=== PATIENT | female | born 1965 | race Caucasian/White ===

== ENCOUNTER 2022-11-15 10:09 | Outpatient (AMB) | payer OTHER, SELFPAY ==
--- NOTE | 2022-11-15 10:12 | A.OFFPC_ITS ---
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 Allergies Sulfa (Sulfonamide Antibiotics) Allergy (Severe, Verified 11/15/22 11:09) Diarrhea Medication List - Last Reconciled 11/15/22 by Meño De Leon MD ibuprofen (Advil Liqui-Gel) 400 mg PO Q8H PRN Tobacco use date assessed: 11/15/22 Dental Screening Dental Screen Date: 11/15/22 Did you have a dental visit in the last 12 months?: No Did you have a dental problem in the last 6 months where you did not have access to dental care?: No Was dental information given to patient?: Patient has 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 HPI Details Patient comes in today for her annual physical examination and to establish care - is a new patient to the practice States that due to a change in her health insurance coverage, she can no longer continue to see and follow up with her previous PCP Relates that she's had recurrent problems with her lower back (pain) since she was in her 20's and feels that her lower back pain has gradually gotten a lot worse over the past few years She is scheduled to get a lumbar spine MRI done at [facility] later today - have advised patient to make sure that the MRI department send over a copy of her results over to us so we can review them as well States that she had some labs done at [facility] a few days ago and will try to get a copy of her results sent over to us as soon as possible Relates that she consistently has had issue with a slightly high platelet count and WBC count (around 400s) for a few years now and that her numbers were still elevated on her recent labs States that she has been advised before to get these checked out further by a specialist but she has never had the chance yet to get these done as she was busy taking care of her over the past few years until he from illness months ago Feels that she is now ready to start taking care of herself and would like to get a referral to see hematology for her abnormal labs She also relates (+) Hx of gestational diabetes and has been advised a couple of times that her sugar was borderline but has never had to take any Rx yet She denies any headaches or dizziness Denies any chest pains, no SOB No nausea/vomiting, no abdominal pain No change in bowel habits noted Denies any acute urinary symptoms States that she has 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, mammogram or screening colonoscopy done in the past and does not wish to be referred for these at present States that she will call for orders/referrals when she is ready for these [facility] Medical History (Updated 11/15/22 @ 12:39 by Meño De Leon MD) Lumbar degenerative disc disease Morbid obesity with BMI of 40.0-44.9, adult Thrombocytosis Leukocytosis (leucocytosis) Gestational diabetes Surgical History (Updated 11/15/22 @ 11:14 by Meño De Leon MD) Hx of appendectomy Family History Other Diabetes FH: mental illness Hypertension Substance abuse Social History Housing: House Patient Tobacco Use Status: Former Tobacco user e-Cigarette/Vaping Use: Never Used service: No Current occupational status: employed Current occupational exposures/hazards: No Cognitive needs: No Hearing needs: No Vision needs: No Female Reproductive History Menstrual Menopause type: natural (since 2019) Questionnaire PHQ-9 Over the last 2 weeks, how often have you been bothered by any of the following problems? 1. Little interest or pleasure in doing things: not at all 2. Feeling down, depressed, or hopeless: not at all 3. Trouble falling or staying asleep, or sleeping too much: not at all 4. Feeling tired or having little energy: not at all 5. Poor appetite or overeating: not at all 6. Feeling bad about yourself - or that you are a failure or have let yourself or your family down: not at all 7. Trouble concentrating on things, such as reading the newspaper or watching television: not at all 8. Moving or speaking so slowly that other people could have noticed. Or the opposite - being so fidgety or restless that you have been moving around a lot more than usual: not at all 9. Thoughts that you would be better off or of hurting yourself in some way: not at all Total score: 0 Depression Screening Interpretation: Negative 86714 - PHQ-9 Billing: Yes Source: Developed by Drs. Jonathan Scott, Roger Valderrama and colleagues, with an educational daniel from [employer]. Thrive Questionnaire Date Thrive assessed: 11/15/22 I am a: Patient What is your living situation today?: I have a steady place to live Within the past 12 months, did the food you bought not last and you didn't have the money to get more?: Never true Within the past 12 months, did you worry whether your food would run out before you got money to buy more?: Never true Do you have trouble paying for medicines?: No Do you have trouble getting transportation to medical appointments?: No Do you have trouble paying your heating and electricity bill?: No Do you have trouble taking care of your child, family member or friend?: No Do you have trouble with day-to-day activities such as bathing, preparing meals, shopping, managing finances, etc.?: No Are you currently unemployed and looking for a job?: No Are you interested in more education?: No Please select the resources that you would like help with: None Currently or been in a relationship where the following occur: no concerns reported AUDIT C Alcohol Use Questionnaire (AUDIT-C) 1. How often do you have a drink containing alcohol?: Never 3. How often do you have six or more drinks on one occasion?: Never Total Score: 0 Score Reviewed/Action Taken: Yes AVA-7 AMB Questionnaire AVA-7 Date AVA - 7 assessed: 11/15/22 Feeling nervous, anxious, or on edge: 0 = Not at all Not being able to stop or control worryin = Not at all Worrying too much about different things: 0 = Not at all Trouble relaxin = Not at all Being so restless that it is hard to sit still: 0 = Not at all Becoming easily annoyed or irritable: 0 = Not at all Feeling afraid as if something awful might happen: 0 = Not at all Total AVA-7 score (0-4 normal; 5-9 mild; 10-14 moderate; 15-21 severe): 0 Source: Developed by Domitila Tomlin. Leon, Roger Trevino and colleagues, with an educational daniel from [employer]. Review of Systems Const Denies chills, Denies fatigue, Denies fever(s), Denies headache(s) and Denies malaise Eyes Denies blurry vision, Denies change in vision, Denies irritation and Denies itchy eyes ENT Denies dysphagia, Denies dizziness, Denies otalgia, Denies headache(s), Denies nasal congestion, Denies neck pain, Denies odynophagia, Denies sinus pain and Denies sore throat Card Denies chest pain, Denies rapid heart rate, Denies irregular heart rhythm, Denies palpitations and Denies dyspnea Resp Denies chest congestion, Denies cough, Denies dyspnea and Denies wheezing GI Denies abdominal pain, Denies bloating, Denies constipation, Denies dysphagia, Denies heartburn, Denies diarrhea, Denies nausea, Denies odynophagia and Denies vomiting Denies hematuria, Denies urinary frequency, Denies dysuria, Denies urinary incontinence and Denies urinary urgency Musc Reports back pain (over the lower back - chronic), Denies arthralgias, Denies joint swelling, Denies muscle weakness and Denies neck pain Skin/Breast Denies breast pain, Denies breast mass, Denies change in pigmentation, Reports lesions ((+) palpable cyst over the right lower back), Denies rash and Denies unusual bruising Neuro Denies dizziness, Denies headache(s) and Denies paresthesias Psych Denies anxiety and Denies depression Endo Denies fatigue and Denies palpitations Renny/Lymph Denies easy bruising and Denies lymphadenopathy Aller/Immun Denies itchy eyes and Denies wheezing Physical exam (Primary Care) Vital Signs: Last Vital Signs Pulse 88 11/15/22 10:15 BP 120/80 11/15/22 10:15 Pulse Ox 95 11/15/22 10:15 Oxygen Delivery Method Room Air 11/15/22 10:15 BMI result Body Mass Index 40.7 Tobacco/Smoking Status: Tobacco use Status Tobacco use date assessed 11/15/22 11/15/22 10:21 Patient Tobacco Use Status Former Tobacco user 11/15/22 10:21 e-Cigarette/Vaping Use Never Used 11/15/22 10:21 PHQ-9: PHQ-9 Score PHQ-9: Total score 0 11/15/22 10:21 Depression Screening Interpretation: Negative Thrive Assessment: Date of Thrive Assessment Date Thrive assessed 11/15/22 11/15/22 10:21 Currently or been in a relationship where the following occur: no concerns reported Const General: no acute distress, alert and awake Orientation/consciousness: patient oriented x3 HENMT Head: Yes normocephalic and Yes atraumatic Ears: external ears normal, TM's normal bilaterally and EAC's normal General nose exam: No nasal discharge present Face and sinus: Yes normal facial exam and Yes sinuses nontender Teeth and gingiva: dentition normal Throat: Yes posterior oropharynx normal and Yes tonsils normal (no TP congestion) Eyes Eyelids: Yes eyelids normal Conjunctivae: conjunctivae normal Pupils: Equal, round and reactive pupils present EOM: EOMs intact bilaterally Neck Neck: Yes no lymphadenopathy and Yes supple Thyroid: Thyroid normal Resp Auscultation: clear to auscultation bilaterally, no rales and no wheezes Cardio Rate: regular rate Rhythm: regular rhythm Heart sounds: no murmurs GI Palpation (GI): Soft to palpation, nontender and No hepatosplenomegaly present Auscultation: normal bowel sounds General: Yes no CVA tenderness Back/Spine/Pelvis Back: no CVA tenderness Thoracic/Lumbar Spine: lumbar spinal tenderness Skin Lesions: no lesions Rashes: no rashes Neuro General: patient oriented x3, moves all extremities, no focal motor deficits and CN's II-XI intact bilaterally Cranial nerves: Yes Equal, round and reactive pupils present Cognition (Neuro): normal cognition Gait exam (Neuro): Normal gait present Extrem General: Yes no clubbing, cyanosis or edema Assessment and Plan Assessment & Plan (1) Annual physical exam: Code(s): Z00.00 - Encounter for general adult medical examination without abnormal findings Plan: Will try to obtain a copy of her most recent lab results that were done at [facility] just a few days ago for review States that she has never had annual mammogram, 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 and screening colonoscopy done in the past and does not wish to pursue these at the moment - states that she will call for orders/referrals when she feels she is ready to get these taken care of (2) Leukocytosis (leucocytosis): Code(s): D72.829 - Elevated white blood cell count, unspecified Qualifiers: Leukocytosis type: unspecified Qualified Code(s): D72.829 - Elevated white blood cell count, unspecified Plan: Unknown etiology Per request, will refer her to hematology for further evaluation and management (3) Thrombocytosis: Code(s): D75.839 - Thrombocytosis, unspecified Plan: Per request, will refer her to hematology for further evaluation and management (4) Impaired fasting glucose: Code(s): R73.01 - Impaired fasting glucose Plan: Will review her recent lab results once we receive them from [facility] - patient states that she will try to have them sent/faxed over PÉREZ Discussed low calorie/low carb diet; exercise as tolerated although she states that her lower back issues limit her activity tolerance quite a bit (5) Lumbar degenerative disc disease: Code(s): M51.36 - Other intervertebral disc degeneration, lumbar region Plan: Reinforced activity and weight-lifting restrictions to help minimize her lower back from flaring up States that she is scheduled to have a lumbar spine MRI done at the hospital later today for further evaluation of her lower back pain (6) Morbid obesity with BMI of 40.0-44.9, adult: Code(s): E66.01 - Morbid (severe) obesity due to excess calories; Z68.41 - Body mass index [BMI] 40.0-44.9, adult Plan: Reinforced diet/exercise as tolerated/lose weight Plan Follow up in 6 months Orders: Referrals Hematology & Oncology Referral D72.829 - Elevated white blood cell count, unspecified, D75.839 - Thrombocytosis, unspecified Review Patient declined Mammogram: 11/15/22 Declined Pap Smear: 11/15/22 Patient declined Colonoscopy: 11/15/22 Patient declined Colon Cancer Screen Lab: 11/15/22 Patient declined Pneumococcal Vaccine: 11/15/22 Declined TDap/Td: 11/15/22 Coding Level of Care Code New Pt Prev Care 40-64y(10057) Diagnoses Annual physical exam Z00.00 Leukocytosis, unspecified type D72.829 Leukocytosis type: unspecified Thrombocytosis D75.839 Impaired fasting glucose R73.01 Lumbar degenerative disc disease M51.36 Morbid obesity with BMI of 40.0-44.9, adult E66.01; Z68.41
[2022-11-15 10:15] VITALS: BP 120/80; PULSE 88; O2SAT 95; BMI 40.7
== END 2022-11-15 11:24 | disposition home or self-care (01) ==
PROVIDERS: PCP Internal Medicine; Visit Provider Internal Medicine
DX: Z00.00 Encounter for general adult medical examination without abnormal findings (principal); D72.829 Elevated white blood cell count, unspecified; E66.01 Morbid (severe) obesity due to excess calories; Z68.41 Body mass index [BMI] 40.0-44.9, adult; D75.839 Thrombocytosis, unspecified; R73.01 Impaired fasting glucose; M51.36 Other intervertebral disc degeneration, lumbar region
CPT/HCPCS: 99386

== ENCOUNTER → 2022-11-26 07:53 | Outpatient (BNV) | payer OTHER, SELFPAY | PROVIDERS: PCP Internal Medicine; Visit Provider Internal Medicine Medical Oncology | DX: D72.829 Elevated white blood cell count, unspecified (principal) | CPT/HCPCS: 99204 ==

== ENCOUNTER 2023-07-14 09:54 | Outpatient (AMB) | payer OTHER, SELFPAY ==
--- NOTE | 2023-07-14 09:58 | A.SPINEOV_ITS ---
Intake Visit Reasons: radiculopathy, lumbar region Intake Note: Ms. Martinez is here today c/o Low back pain that radiates down to both legs. 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 She has a 57-year-old female presents today for evaluation of right-sided low back pain which started about a year ago. She tells me she has had pain in her low back on and off for 20 years but last year after doing some work on an exercise bike, she stopped and maybe a month later started experiencing this pain on the right side of her low back. It occasionally will radiate down her leg. To this point, she has not done any dedicated conservative treatment. She did buy a physical therapy program apparently, but has not really been participating in it. She was prescribed physical therapy but went for 1 session and was not comfortable with the environment she was in. She has not done any injections. 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 She did see a surgeon in [place] about this issue was told that it is nonsurgical. She was seen in your office, felt that it could be sacroiliac and offered an injection but did not want to pursue that. She is here today to see us for an evaluation with a lumbar MRI showing some mild degenerative changes. PMH: She is reasonably healthy, history of hypertension, anxiety she has an elevated white blood cell count and platelet count, appendectomy Social hx: She does not smoke. Medications: She takes no medications Allergies: Sulfa Physical exam: Morbidly obese female no acute distress, she has full strength and normal reflexes of the lower extremities, negative HARRY testing. Positive finger Nick test. Imaging review: She has a lumbar MRI done at [facility] which basically looks like normal MRI with normal disc height and normal alignment. There is some mild facet arthropathy on the left at L4-5. No nerve compression seen. Impression: 57-year-old female presents to the office for evaluation of back pain on the right side which started about a year ago, worse with standing, seems to be okay if she is sitting down but she will feel it at night when she is lying. She will get a pain down her right leg occasionally but the main symptom is the back pain. Her MRI otherwise looks basically normal, I see no pathology. I agree with your assessment that this could be sacroiliac and that an injection would be worthwhile but she seems to be against that. She is very insistent that there was some kind of problem with the fatty tumor diagnosis that she saw online. I did not see any such thing on her imaging. I have never heard of this, and we do not do any procedure related to this finding. She seemed disappointed with that, but I encouraged her to seek out the doctors who due to that procedure if she is convinced that is going to fix her issues. I did try to explain her that back pain is a very complicated problem and that often the sources never found but the most reliable and standard therapies are the things that she has not tried yet. This would be weight loss, dedicated long-term physical therapy, anti-inflammatories, Tylenol, chiropractic, acupuncture, yoga etc.. Thank you for allowing us to care for your patient. The total time spent with this visit with this patient was 45 minutes reviewing history, physical exam, lumbar imaging review, and implementation of treatment plan or further diagnostic testing Ellis Nur MD,PhD [facility] Coding Level of Care Code New Pt Level 4 (45650) Diagnoses Back pain M54.9
== END 2023-07-14 11:21 | disposition home or self-care (01) ==
PROVIDERS: PCP Internal Medicine; Referring Provider Physician Assistant; Visit Provider Physician Assistant
DX: M54.9 Dorsalgia, unspecified (principal)
CPT/HCPCS: 99204

== ENCOUNTER → 2023-07-14 09:54 | Outpatient (BNVA) | payer OTHER, SELFPAY | PROVIDERS: PCP Internal Medicine; Visit Provider Physician Assistant | DX: M54.16 Radiculopathy, lumbar region (principal) | CPT/HCPCS: 99202 ==

== ENCOUNTER 2023-09-16 10:29 | Outpatient (REF) | payer OTHER, SELFPAY ==
--- NOTE | ~2023-09-16 | US_ITS ---
EXAMINATION: US ABDOMEN LIMITED CLINICAL INFORMATION: Intra-abdominal and pelvic swelling, mass or lump, unspecified. COMPARISON: None available. TECHNIQUE: Real-time imaging of the right lower flank. FINDINGS: No sonographic correlate for reported symptoms of palpable lump in the right flank. No lymphadenopathy, fluid collection or soft tissue mass. US/US abdomen limited IMPRESSION: No sonographic correlate for reported symptoms of palpable lump in the right flank.
== END 2023-09-16 10:30 | disposition home or self-care (01) ==
LOC: HO.US 10:29
PROVIDERS: PCP Internal Medicine; Visit Provider Internal Medicine
DX: R19.00 Intra-abdominal and pelvic swelling, mass and lump, unspecified site (principal)
CPT/HCPCS: 76705

== ENCOUNTER 2023-10-20 11:13 | Outpatient (AMB) | payer OTHER, SELFPAY ==
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
[2023-10-20 11:22] VITALS: BP 178/87; PULSE 91; O2SAT 97; BMI 42.7
== END 2023-10-20 12:13 | disposition home or self-care (01) ==
PROVIDERS: PCP Internal Medicine; Referring Provider Internal Medicine; Visit Provider Nurse Practitioner Family
DX: M51.36 Other intervertebral disc degeneration, lumbar region (principal); M47.817 Spondylosis without myelopathy or radiculopathy, lumbosacral region; M53.3 Sacrococcygeal disorders, not elsewhere classified; E66.01 Morbid (severe) obesity due to excess calories; Z68.41 Body mass index [BMI] 40.0-44.9, adult; M54.16 Radiculopathy, lumbar region; D17.1 Benign lipomatous neoplasm of skin and subcutaneous tissue of trunk
CPT/HCPCS: 99204

== ENCOUNTER → 2023-10-20 11:13 | Outpatient (BNVA) | payer OTHER, SELFPAY | PROVIDERS: PCP Internal Medicine; Referring Provider Internal Medicine; Visit Provider Nurse Practitioner Family | DX: M51.36 Other intervertebral disc degeneration, lumbar region (principal); M47.817 Spondylosis without myelopathy or radiculopathy, lumbosacral region; M53.3 Sacrococcygeal disorders, not elsewhere classified; M54.16 Radiculopathy, lumbar region; D17.1 Benign lipomatous neoplasm of skin and subcutaneous tissue of trunk; E66.01 Morbid (severe) obesity due to excess calories; Z68.41 Body mass index [BMI] 40.0-44.9, adult | CPT/HCPCS: 99202 ==

== ENCOUNTER 2023-10-21 08:34 | Outpatient (REF) | payer OTHER, SELFPAY | END 2023-10-21 08:35 | disposition home or self-care (01) | LOC: HO.XRAY 08:34 | PROVIDERS: PCP Internal Medicine; Visit Provider Nurse Practitioner Family | DX: Z13.89 Encounter for screening for other disorder (principal) ==

== ENCOUNTER 2023-10-23 07:22 | Outpatient (REF) | payer OTHER, SELFPAY ==
--- NOTE | ~2023-10-23 | XR_ITS ---
EXAMINATION: XR LUMBOSACRAL SPINE BENDING FILMS ONLY CLINICAL INFORMATION: Other intervertebral disc degeneration, lumbar region COMPARISON: None available. TECHNIQUE: Lateral flexion and extension views of the lumbar spine were obtained. FINDINGS: Grade 1 anterolisthesis of L4 on L5 measures 6 mm in flexion and 8 mm in extension. Otherwise alignment is anatomic. No compression fracture. No significant degenerative disc disease. Probable mild facet arthrosis at L4-5 and L5-S1. XR/XR lumbar spine bending only IMPRESSION: Grade 1 anterolisthesis L4 on L5 measuring 6 mm in flexion and 8 mm in extension. Electronically signed by: Pawan Alfonso MD 11/18/2023 01:41 PM EDT
== END 2023-10-23 07:23 | disposition home or self-care (01) ==
LOC: HO.XRAY 07:22
PROVIDERS: PCP Internal Medicine; Visit Provider Nurse Practitioner Family
DX: M51.36 Other intervertebral disc degeneration, lumbar region (principal); M47.817 Spondylosis without myelopathy or radiculopathy, lumbosacral region; M53.3 Sacrococcygeal disorders, not elsewhere classified
CPT/HCPCS: 72120

== ENCOUNTER 2023-10-30 08:47 | Outpatient (AMB) | payer OTHER, SELFPAY ==
[2023-10-30 08:55] VITALS: BMI 42.7
--- NOTE | 2023-10-30 08:55 | MHC.OFFVIS ---
Vital Signs 10/30/23 08:55 Height 5 ft 1 in Weight 226 lb 3.99 oz BMI 42.7 Intake Visit Reasons: lipoma midparaspinal Intake Note: This patient presents for a lipoma of the midparaspinal region. Pt c/o; reports pain, reports feels a lump on her back. Process Environmental Technician Required: No Accompanied by: Other Relationship Allergies Sulfa (Sulfonamide Antibiotics) Allergy (Severe, Verified 10/30/23 08:56) Diarrhea Medication List - Last Reconciled 10/30/23 by Red Bailey MD No Known Home Meds HPI Comments Details: 57-year-old female patient presenting with complaints of low back pain and a palpable mass 1st noted approximately 1 year ago. The lump has increased in size and is causing increased discomfort. She reports mainly localized pain when the lump is palpated but also has some pain extending down her right leg. She has been evaluated by the pain clinic and recommendation made for excision of this palpable lump. She denies a previous history of lipomas. She denies any bleeding or discharge from the site. [facility] Medical History Lumbar degenerative disc disease Morbid obesity with BMI of 40.0-44.9, adult Thrombocytosis Leukocytosis (leucocytosis) Gestational diabetes Surgical History Hx of appendectomy Family History Father Prostate CA Maternal Aunt Lung cancer Mother Diabetes Hypertension Other FH: mental illness Substance abuse Social History Housing: House Patient Tobacco Use Status: Former Tobacco user e-Cigarette/Vaping Use: Never Used service: No Current occupational status: employed Current occupational exposures/hazards: No Cognitive needs: No Hearing needs: No Vision needs: No Review of Systems Const All systems reviewed & are unremarkable except as noted in HPI and below Physical Exam Vital Signs: BMI result Body Mass Index 42.7 Const General: cooperative and no acute distress Nutritional Appearance: well nourished Orientation/consciousness: patient oriented x3 Limitations: no limitations HEENT Head: Yes normocephalic and Yes atraumatic Ears: hearing grossly normal bilaterally Resp Effort & Inspection: normal respiratory effort, no audible wheezes, no cough and no respiratory distress Cardio Jugular venous distension: no JVD GI Inspection: Yes normal to inspection Back/Spine/Pelvis Back/spine/pelvis image: 1. 5 cm mobile soft tissue mass within the subcutaneous tissue, tender to palpation suggestive of a lipoma. No overlying skin changes are appreciated. Skin Other: Warm, dry, no rash Neuro General: patient oriented x3 Extrem General: Yes no clubbing, cyanosis or edema Assessment & Plan Assessment & Plan (1) Lipoma of lower back: Code(s): D17.1 - Benign lipomatous neoplasm of skin and subcutaneous tissue of trunk Category: Medical Plan 57-year-old female patient presenting with a soft tissue mass in the lower right back which on examination does appear consistent with a lipoma. We discussed the options of excision under anesthesia verses under local and she wishes to proceed with local anesthesia. This will be scheduled as a minor surgery at her earliest convenience. After discussion of the procedure, risks, and alternatives, she consents to excision of the right lower back lipoma. Coding Level of Care Code New Pt Level 4 (96523) Diagnoses Lipoma of lower back D17.1
== END 2023-10-30 09:10 | disposition home or self-care (01) ==
PROVIDERS: PCP Internal Medicine; Visit Provider Surgery
DX: D17.1 Benign lipomatous neoplasm of skin and subcutaneous tissue of trunk (principal)
CPT/HCPCS: 99204

== ENCOUNTER → 2023-10-30 08:47 | Outpatient (BNVA) | payer OTHER, SELFPAY | PROVIDERS: PCP Internal Medicine; Visit Provider Surgery | DX: D17.1 Benign lipomatous neoplasm of skin and subcutaneous tissue of trunk (principal) | CPT/HCPCS: 99202 ==

== ENCOUNTER 2023-11-18 09:38 | Outpatient (AMB) | payer OTHER, SELFPAY ==
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
[2023-11-18 09:57] VITALS: BP 180/102; PULSE 91; O2SAT 99; BMI 42.5
== END 2023-11-18 10:33 | disposition home or self-care (01) ==
PROVIDERS: PCP Internal Medicine; Visit Provider Nurse Practitioner Family
DX: M51.36 Other intervertebral disc degeneration, lumbar region (principal); M47.817 Spondylosis without myelopathy or radiculopathy, lumbosacral region; M53.3 Sacrococcygeal disorders, not elsewhere classified; E66.01 Morbid (severe) obesity due to excess calories; Z68.41 Body mass index [BMI] 40.0-44.9, adult; M54.16 Radiculopathy, lumbar region; D17.1 Benign lipomatous neoplasm of skin and subcutaneous tissue of trunk
CPT/HCPCS: 99214; G2211

== ENCOUNTER → 2023-11-18 09:38 | Outpatient (BNVA) | payer OTHER, SELFPAY | PROVIDERS: PCP Internal Medicine; Visit Provider Nurse Practitioner Family | DX: M51.36 Other intervertebral disc degeneration, lumbar region (principal); M47.817 Spondylosis without myelopathy or radiculopathy, lumbosacral region; M54.16 Radiculopathy, lumbar region; G89.29 Other chronic pain; M53.3 Sacrococcygeal disorders, not elsewhere classified; D17.1 Benign lipomatous neoplasm of skin and subcutaneous tissue of trunk; E66.01 Morbid (severe) obesity due to excess calories; Z68.41 Body mass index [BMI] 40.0-44.9, adult | CPT/HCPCS: 99212 ==

== ENCOUNTER 2023-12-16 12:01 | Outpatient (REF) | payer OTHER, SELFPAY ==
[2023-12-16 12:49] VITALS: BP 217/97; PULSE 89; RESP 22; O2SAT 96; BMI 33.4
== END 2023-12-16 12:02 | disposition home or self-care (01) ==
LOC: HO.MS 12:01
PROVIDERS: PCP Internal Medicine; Visit Provider Surgery
DX: Z53.09 Procedure and treatment not carried out because of other contraindication (principal)
CPT/HCPCS: J2004

== ENCOUNTER → 2024-04-16 08:40 | Outpatient (AMB) | payer OTHER, SELFPAY ==
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
== END | disposition home or self-care (01) ==
PROVIDERS: PCP Internal Medicine; Visit Provider Nurse Practitioner Family
CPT/HCPCS: 99214; G2211

== ENCOUNTER → 2024-04-16 08:40 | Outpatient (BNVA) | payer OTHER, SELFPAY | PROVIDERS: PCP Internal Medicine; Visit Provider Nurse Practitioner Family | DX: M47.817 Spondylosis without myelopathy or radiculopathy, lumbosacral region (principal); M53.3 Sacrococcygeal disorders, not elsewhere classified; M51.369 Other intervertebral disc degeneration, lumbar region without mention of lumbar back pain or lower extremity pain; M54.16 Radiculopathy, lumbar region; I10 Essential (primary) hypertension; D17.1 Benign lipomatous neoplasm of skin and subcutaneous tissue of trunk | CPT/HCPCS: 99212 ==

== ENCOUNTER 2024-06-15 09:08 | Outpatient (AMB) | payer OTHER, SELFPAY ==
--- NOTE | 2024-06-15 09:13 | A.OFFVIS_ITS ---
Vital Signs 3 06/15/24 09:23 Height 5 ft 1 in Weight 228 lb BMI 43.1 BP 140/90 H Blood Pressure Location Lt brachial Position Sitting Intake Visit Reasons: Lipoma on back Intake Note: Patient is seen in office to re-discuss excision of back lipoma. 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 She was previously evaluated last year because of many family commitments was then able to schedule the procedure. She does not feel the lipoma has changed significantly but does continue to cause significant amount of pain throughout the day. She is currently wearing lidocaine patch which does seem to help to some degree but feels she is ready to have the lipoma removed. She denies any other changes since her last visit. [facility] Medical History Lumbar degenerative disc disease Morbid obesity with BMI of 40.0-44.9, adult Thrombocytosis Leukocytosis (leucocytosis) Gestational diabetes Surgical History Hx of appendectomy Family History Father Prostate CA Maternal Aunt Lung cancer Mother Diabetes Hypertension Other FH: mental illness Substance abuse Social History Housing: House Patient Tobacco Use Status: Former Tobacco user e-Cigarette/Vaping Use: Never Used service: No Current occupational status: employed Current occupational exposures/hazards: No Cognitive needs: No Hearing needs: No Vision needs: No Review of Systems Const All systems reviewed & are unremarkable except as noted in HPI and below Physical Exam Const General: cooperative and no acute distress Nutritional Appearance: well nourished Orientation/consciousness: patient oriented x3 Limitations: no limitations HEENT Head: Yes normocephalic and Yes atraumatic Ears: hearing grossly normal bilaterally Resp Effort & Inspection: normal respiratory effort, no audible wheezes, no cough and no respiratory distress Cardio Jugular venous distension: no JVD GI Inspection: Yes normal to inspection Back/Spine/Pelvis Back/spine/pelvis image: 2 1. Approximate 5 cm lipoma in the lower right back, tender to palpation. Lipoma feels fairly deep within the subcutaneous tissue. No overlying skin changes. Skin Other: Warm, dry, no rash Neuro General: patient oriented x3 Extrem General: Yes no clubbing, cyanosis or edema Assessment & Plan Assessment & Plan (1) Lipoma of lower back: Code(s): D17.1 - Benign lipomatous neoplasm of skin and subcutaneous tissue of trunk Category: Medical Plan 58-year-old female patient with a persistently painful soft tissue mass consistent with a lipoma in the lower right back. Patient has requested excision of this lesion under local anesthesia. After review of the procedure, risks, and alternatives, she consents to the excision of lipoma. Coding Level of Care Code Est Pt Level 3 (91635) Diagnoses Lipoma of lower back D17.1
[2024-06-15 09:23] VITALS: BP 140/90; BMI 43.1
== END 2024-06-15 09:39 | disposition home or self-care (01) ==
LOC: HO.HGS 09:08
PROVIDERS: PCP Internal Medicine; Visit Provider Surgery
DX: D17.1 Benign lipomatous neoplasm of skin and subcutaneous tissue of trunk (principal)
CPT/HCPCS: 99213

== ENCOUNTER → 2024-06-15 09:08 | Outpatient (BNVA) | payer OTHER, SELFPAY | PROVIDERS: PCP Internal Medicine; Visit Provider Surgery | DX: D17.1 Benign lipomatous neoplasm of skin and subcutaneous tissue of trunk (principal) | CPT/HCPCS: 99212 ==

== ENCOUNTER 2024-06-29 12:42 | Outpatient (REF) | payer OTHER, SELFPAY ==
[2024-06-29 14:52] VITALS: BP 185/89; PULSE 95; RESP 16; TEMP 36.7; O2SAT 100; BMI 41.9
--- NOTE | 2024-06-29 15:37 | W.PM.OPN ---
Operative Note Operative Note Date of Service: 06/29/24 Narrative: Preoperative diagnosis: Lipoma right lower back Postoperative diagnosis: Same Procedure: Excision lipoma right lower back Surgeon: Red Bailey MD Prosthetic Lab Technician: None Anesthesia: Local lidocaine 1% with epinephrine Indications for procedure: 58-year-old female presenting with a painful lump in the lower back which on examination is mobile and soft consistent with a lipoma Operative findings: Lipoma measuring approximately 5 cm in diameter Specimen: Lipoma right lower back Estimated blood loss: 4 cc Complications: None Procedure details: Patient was brought to the minor surgery suite and placed in a supine position. She was then placed in a left lateral decubitus position. The site of surgery was confirmed by the patient in the right lower back. After assuring informed consent the skin was prepped with Betadine and draped in sterile fashion. Local anesthesia was infiltrated in a transverse fashion and a transverse incision made directly over the lipoma. Incision was carried out through subcutaneous tissue up to the lipoma which was felt to be fairly superficial. Allis clamp was used to grasp the lipoma. This was then easily dissected from the surrounding subcutaneous tissue using blunt dissection and a Metzenbaum scissors. The specimen was removed and sent to pathology for further examination. Pressure was held to maintain hemostasis. Deep subcutaneous tissue was then reapproximated using interrupted 3-0 Polysorb sutures. Dermis was reapproximated using interrupted 3-0 Polysorb sutures. Skin was then closed using a running subcuticular 4-0 Polysorb suture. Steri-Strips, 2 x 2 gauze and Tegaderm were then applied. The patient tolerated the procedure well. Sponge, instrument, and needle counts reported as correct. The patient was transferred to PACU in stable condition.
== END 2024-06-29 12:43 | disposition home or self-care (01) ==
LOC: HO.MS 12:42
PROVIDERS: PCP Internal Medicine; Visit Provider Surgery
PROC: (CPT 11406; principal; 2024-06-29 13:00)
DX: D17.1 Benign lipomatous neoplasm of skin and subcutaneous tissue of trunk (principal)
CPT/HCPCS: 11406; 88304; J2004

== ENCOUNTER → 2024-06-29 12:42 | Outpatient (BNV) | payer OTHER, SELFPAY | PROVIDERS: PCP Internal Medicine; Visit Provider Surgery | DX: D17.1 Benign lipomatous neoplasm of skin and subcutaneous tissue of trunk (principal) | CPT/HCPCS: 21931 ==

== ENCOUNTER 2024-10-18 17:08 | Outpatient (AMB) | payer OTHER, SELFPAY ==
--- OUTSIDE RECORDS SUMMARY | 2024-10-18 17:11 | XMS_ITS | Encounter Summary ---
Author Organization [facility] Address [address] [place] [id number] Phone Care Team Providers Care Licensed Acupuncturist Name Role Phone Unavailable Primary Care Provider Unavailabl e Encounter Details Date Type Department Care Team (Late st Contact Info) Description 12/17/2022 Telephone [facility] OBGYN Gynecology Resident [address], [place] [id number] Marla Loera [place], [place] [address] [place] [id number] [email or web address] Social History Tobacco Use Types Packs/Day Years Used Date Smoking Tobacco: Never Assessed Comments Unknown Sex and Gender Information Value Date Recorded Sex Assigned at Not on file Legal Sex Female 8:33 PM EDT Gender Identity Not on file Sexual Orientation Not on file documented as of this encounter Plan of Treatment Not on file documented as of this encounter Visit Diagnoses Not on filedocumented in this encounter Additional Source Comments The information contained in this document represents components of the legal health record. It is not the complete legal health record.[facility]
[2024-10-18 17:17] VITALS: BP 146/72; PULSE 90; RESP 18; TEMP 36.3; O2SAT 96; BMI 42.2
--- NOTE | 2024-10-18 17:17 | A.OFFPC_ITS ---
Vital Signs 10/18/24 17:17 Height 5 ft 1 in Weight 223 lb 4 oz BMI 42.2 BP 146/72 H Blood Pressure Location Lt brachial Position Sitting Respiration 18 Pulse 90 Pulse Source Pulse Oximeter Temp 97.3 F Temp Source Temporal Artery Scan Pulse Oximetry (%) 96 Oxygen Delivery Method Room Air Intake Visit Reasons: discuss leg pain Ict Programmer Required: No Accompanied by: Allergies Sulfa (Sulfonamide Antibiotics) Allergy (Severe, Verified 10/18/24 17:29) Diarrhea Medication List - Last Reconciled 10/18/24 by Meño De Leon MD No Known Home Meds Tobacco use date assessed: 10/18/24 Dental Screening Dental Screen Date: 10/18/24 Did you have a dental visit in the last 12 months?: No Did you have a dental problem in the last 6 months where you did not have access to dental care?: No Was dental information given to patient?: Patient has dentist HPI discuss leg pain HPI Details Patient comes in today for further evaluation and discussion regarding some of her long-standing and ongoing symptoms States that she has been experiencing chronic low back pain and frequent pain in both of her legs for years now She was seen for this at the pain clinic recently states that the pain Clinic as recommended a trial of epidural injections but she recalls that she has some cysts beside her lumbar spine and she is concerned the injections may aggravate these and make her lower back feel much worse She was seen for the same problem at the spine Center last year (2023) and was recommended to go for physical therapy and SI joint injections when it is appropriate; was advised that she has no surgical indications Adds that she has been taking OTC Superbeets for her high BP and she still does not wish to take any prescription Rx for her high blood pressure and is happy to see that her blood pressure today is a lot better than it was a few months ago She denies any headaches or dizziness Denies any chest pains, no increased shortness of breath No nausea/vomiting, no abdominal pain No change in bowel habits noted [facility] Medical History (Updated 10/25/24 @ 02:19 by Meño De Leon MD) Essential hypertension Lumbar degenerative disc disease Morbid obesity with BMI of 40.0-44.9, adult Thrombocytosis Leukocytosis (leucocytosis) Gestational diabetes Surgical History Hx of appendectomy Family History Father Prostate CA Maternal Aunt Lung cancer Mother Diabetes Hypertension Other FH: mental illness Substance abuse Social History Housing: House Patient Tobacco Use Status: Former Tobacco user e-Cigarette/Vaping Use: Never Used service: No Current occupational status: employed Current occupational exposures/hazards: No Cognitive needs: No Hearing needs: No Vision needs: No Questionnaire PHQ-9 Over the last 2 weeks, how often have you been bothered by any of the following problems? 1. Little interest or pleasure in doing things: nearly every day 2. Feeling down, depressed, or hopeless: several days 3. Trouble falling or staying asleep, or sleeping too much: nearly every day 4. Feeling tired or having little energy: nearly every day 5. Poor appetite or overeating: more than half the days 6. Feeling bad about yourself - or that you are a failure or have let yourself or your family down: not at all 7. Trouble concentrating on things, such as reading the newspaper or watching television: not at all 8. Moving or speaking so slowly that other people could have noticed. Or the opposite - being so fidgety or restless that you have been moving around a lot more than usual: not at all 9. Thoughts that you would be better off or of hurting yourself in some way: not at all Total score: 12 Depression Screening Interpretation: Positive Depression Screening Follow-up: Existing condition and Follow-up Visit Requested Depression Screening Done: Yes 44521 - PHQ-9 Billing: Yes Source: Developed by Drs. Jonathan Scott, Domitila Quintero, Roger Trevino and colleagues, with an educational daniel from [employer]. Thrive Questionnaire Date Thrive assessed: 10/18/24 I am a: Patient What is your living situation today?: I have a steady place to live Within the past 12 months, did the food you bought not last and you didn't have the money to get more?: Never true Within the past 12 months, did you worry whether your food would run out before you got money to buy more?: Never true Do you have trouble paying for medicines?: No Do you have trouble getting transportation to medical appointments?: No Do you have trouble paying your heating and electricity bill?: No Do you have trouble taking care of your child, family member or friend?: No Do you have trouble with day-to-day activities such as bathing, preparing meals, shopping, managing finances, etc.?: No Are you currently unemployed and looking for a job?: No Are you interested in more education?: No Please select the resources that you would like help with: None Currently or been in a relationship where the following occur: No concerns reported THRIVE Score: 0 AUDIT C Alcohol Use Questionnaire (AUDIT-C) 1. How often do you have a drink containing alcohol?: Monthly or less 2. How many drinks containing alcohol do you have on a typical day when you are drinking?: 1 or 2 3. How often do you have six or more drinks on one occasion?: Never Total Score: 1 Score Reviewed/Action Taken: Yes AVA-7 AMB Questionnaire AVA-7 Date AVA - 7 assessed: 10/18/24 Feeling nervous, anxious, or on edge: 1 = Several days Not being able to stop or control worryin = Not at all Worrying too much about different things: 1 = Several days Trouble relaxin = Not at all Being so restless that it is hard to sit still: 0 = Not at all Becoming easily annoyed or irritable: 0 = Not at all Feeling afraid as if something awful might happen: 0 = Not at all Total AVA-7 score (0-4 normal; 5-9 mild; 10-14 moderate; 15-21 severe): 2 Source: Developed by Drs. Jonathan Scott, Domitila Quintero, Roger Trevino and colleagues, with an educational daniel from [employer]. Review of Systems Const Denies chills, Denies fatigue, Denies fever(s) and Denies headache(s) Eyes Denies blurry vision ENT Denies dysphagia, Denies dizziness, Denies otalgia, Denies headache(s), Denies neck pain, Denies odynophagia and Denies sore throat Card Denies chest pain, Denies rapid heart rate, Denies irregular heart rhythm, Denies palpitations and Denies dyspnea Resp Denies chest congestion, Denies cough and Denies dyspnea GI Denies abdominal pain, Denies constipation, Denies dysphagia, Denies heartburn, Denies diarrhea, Denies nausea, Denies odynophagia and Denies vomiting Denies urinary frequency, Denies dysuria and Denies urinary urgency Musc Reports back pain (over the lower back - chronic), Denies arthralgias and Denies neck pain Skin/Breast Reports lesions ((+) palpable cyst over the right lower back) and Denies rash Neuro Denies dizziness, Denies headache(s) and Denies paresthesias Psych Denies anxiety and Denies depression Endo Denies fatigue and Denies palpitations Renny/Lymph Denies easy bruising and Denies lymphadenopathy Physical exam (Primary Care) Vital Signs: Last Vital Signs Temp 97.3 F 10/18/24 17:17 Pulse 90 10/18/24 17:17 Resp 18 10/18/24 17:17 BP 146/72 H 10/18/24 17:17 Pulse Ox 96 10/18/24 17:17 Oxygen Delivery Method Room Air 10/18/24 17:17 BMI result Body Mass Index 42.2 Tobacco/Smoking Status: Tobacco use Status Tobacco use date assessed 10/18/24 10/18/24 17:24 Patient Tobacco Use Status Former Tobacco user 10/18/24 17:24 e-Cigarette/Vaping Use Never Used 10/18/24 17:24 PHQ-9: PHQ-9 Score PHQ-9: Total score 12 10/18/24 17:32 Depression Screening Interpretation: Positive Depression Screening Follow-up: Existing condition and Follow-up Visit Requested Thrive Assessment: Date of Thrive Assessment Date Thrive assessed 10/18/24 10/18/24 17:24 Currently or been in a relationship where the following occur: No concerns reported Const General: no acute distress and alert HENMT Ears: TM's normal bilaterally and EAC's normal Throat: Yes posterior oropharynx normal and Yes tonsils normal (no TP congestion) Neck Neck: Yes supple and No lymphadenopathy Thyroid: Thyroid normal Resp Auscultation: clear to auscultation bilaterally, no rales and no wheezes Cardio Rate: regular rate Rhythm: regular rhythm Heart sounds: no murmurs GI Palpation (GI): Soft to palpation and nontender Auscultation: normal bowel sounds General: Yes no CVA tenderness Back/Spine/Pelvis Back: no CVA tenderness Thoracic/Lumbar Spine: lumbar spinal tenderness Skin Rashes: no rashes Extrem General: Yes no clubbing, cyanosis or edema Coding Level of Care Code Est Pt Level 4 (92855) Diagnoses Essential hypertension I10 Leukocytosis, unspecified type D72.829 Leukocytosis type: unspecified Thrombocytosis D75.839 Impaired fasting glucose R73.01 Degeneration of intervertebral disc of lumbar region with discogenic back pain M51.360 Disc-related pain type: discogenic back pain only Chronic fatigue R53.82 Morbid obesity with BMI of 40.0-44.9, adult E66.01; Z68.41 Additional Codes PHQ-9 - 93952 - PHQ-9 Billing: Yes ([id number]) Assessment & Plan Assessment & Plan (1) Essential hypertension: Code(s): I10 - Essential (primary) hypertension Category: Medical Plan: Reinforced low-sodium diet - goal is systolic BP of 100 20 mm or less Patient has declined being started on prescription medications to help control her blood pressure She is currently taking OTC super beets to help lower her blood pressure and feels that they are helping and that her blood pressure today is a lot better than what it was a few months ago (2) Leukocytosis (leucocytosis): Code(s): D72.829 - Elevated white blood cell count, unspecified Category: Medical Qualifiers: Leukocytosis type: unspecified Qualified Code(s): D72.829 - Elevated white blood cell count, unspecified Plan: Patient was referred to Hematology for further evaluation a couple of years ago and she was seen by Dr. Kimball, who sent her for some labs and workups Patient states that she had these done at an outside lab and was advised by Hematology subsequently that her leukocytosis and thrombocytosis were reactive changes and she has no evidence of any underlying Hematology or bone marrow disease It appears that she has not gone back to see Hematology out to her initial visit - patient states that she was told by Dr. Kimball that all of her tests came back negative and she does not need to continue following up with her on a regular basis (3) Thrombocytosis: Code(s): D75.839 - Thrombocytosis, unspecified Category: Medical (4) Impaired fasting glucose: Code(s): R73.01 - Impaired fasting glucose Category: Medical Plan: Her fasting glucose was at 108 mg/dL on her labs done at [facility] a couple of years ago in 2022 Patient has no other follow-up labs done since and we will send her for some follow-up labs PÉREZ Reinforced low calorie/low carb diet (5) Lumbar degenerative disc disease: Code(s): M51.36 - Other intervertebral disc degeneration, lumbar region Category: Medical Qualifiers: Disc-related pain type: discogenic back pain only Qualified Code(s): M51.360 - Other intervertebral disc degeneration, lumbar region with discogenic back pain only Plan: Reinforced activity and weightlifting restrictions to avoid aggravating her low back pain, which she states she has had for years She was seen pain management for her low back pain and was recommended a trial of SI joint injections but due to the reported cyst that she has beside her lumbar spine, she has significant reservations about this and did not proceed with back injections as recommended Follow-up with pain management as scheduled (6) Chronic fatigue: Code(s): R53.82 - Chronic fatigue, unspecified Category: Medical Plan: Patient continues to be concerned about her reported symptoms of chronic fatigue and would like to have some workups in labs done for further evaluation Labs ordered, to include a Lyme disease titer as well as CBC and thyroid function Have advised patient that her chronic fatigue may be related as well to her poorly controlled blood pressure but patient does not really agree with this and declines offered to be started on any prescription medication for her blood pressure (7) Morbid obesity with BMI of 40.0-44.9, adult: Code(s): E66.01 - Morbid (severe) obesity due to excess calories; Z68.41 - Body mass index [BMI] 40.0-44.9, adult Category: Medical Plan: Reinforced diet/exercise as tolerated/lose weight Plan Follow up as scheduled in a couple of months Orders: Orders TSH reflex Free T4 10/18/24 E78.00 - Pure hypercholesterolemia, unspecified UA CC w/rflx Micro + Cult 10/18/24 R30.0 - Dysuria Vitamin B12 and Folate 10/18/24 E53.8 - Deficiency of other specified B group vitamins Vitamin D 25-OH Total 10/18/24 E55.9 - Vitamin D deficiency, unspecified Lyme IgG/IgM w/reflex to WB 10/18/24 M25.50 - Pain in unspecified joint, R53.82 - Chronic fatigue, unspecified Erythrocyte Sedimentation Rate 10/18/24 M79.7 - Fibromyalgia Complete Blood Count Auto Diff 10/18/24 D64.9 - Anemia, unspecified Comprehensive [place]. Panel Fast 10/18/24 E78.00 - Pure hypercholesterolemia, unspecified Lipid Panel 10/18/24 E78.00 - Pure hypercholesterolemia, unspecified
== END 2024-10-18 17:53 | disposition home or self-care (01) ==
LOC: HO.HMCH 17:08
PROVIDERS: PCP Internal Medicine; Visit Provider Internal Medicine
DX: I10 Essential (primary) hypertension (principal); D72.829 Elevated white blood cell count, unspecified; D75.839 Thrombocytosis, unspecified; R73.01 Impaired fasting glucose; M51.360 Other intervertebral disc degeneration, lumbar region with discogenic back pain only; R53.82 Chronic fatigue, unspecified; E66.01 Morbid (severe) obesity due to excess calories; Z68.41 Body mass index [BMI] 40.0-44.9, adult

== ENCOUNTER → 2024-10-18 17:08 | Outpatient (BNVA) | payer OTHER, SELFPAY | PROVIDERS: PCP Internal Medicine; Visit Provider Internal Medicine | DX: I10 Essential (primary) hypertension (principal); M79.662 Pain in left lower leg; M79.661 Pain in right lower leg; D72.829 Elevated white blood cell count, unspecified; D75.839 Thrombocytosis, unspecified; R73.01 Impaired fasting glucose; M51.360 Other intervertebral disc degeneration, lumbar region with discogenic back pain only; R53.82 Chronic fatigue, unspecified; E66.01 Morbid (severe) obesity due to excess calories; E78.00 Pure hypercholesterolemia, unspecified; R30.0 Dysuria; E53.8 Deficiency of other specified B group vitamins; E55.9 Vitamin D deficiency, unspecified; M25.50 Pain in unspecified joint; M79.7 Fibromyalgia; D64.9 Anemia, unspecified; Z68.41 Body mass index [BMI] 40.0-44.9, adult | CPT/HCPCS: 96127; 99212 ==